=== PATIENT | female | born 1995 | race American Indian/Alaskan Native ===

== ENCOUNTER 2020-01-10 19:57 | Emergency (ER) | payer MEDICAID ==
[2020-01-10 20:26] VITALS: BP 107/56
== END 2020-01-11 03:35 | disposition left against medical advice (07) ==
LOC: ED 19:57
DX: L02.411 Cutaneous abscess of right axilla (principal); Z53.21 Procedure and treatment not carried out due to patient leaving prior to being seen by health care provider